=== PATIENT | female | born 2000 | race African-American/Black ===

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

== ENCOUNTER 2019-07-30 21:52 | Emergency (ER) | payer MEDICAID, OTHER ==
[~2019-07-30] VITALS: Ht 165.1 cm; Wt 88.5 kg
[~2019-07-30 21:52] MED LIST changes: +METR-34 PO; -METR500T8 PO
--- NOTE | 2019-07-30 23:01 | PHYS DOC ---
Past Medical History Past Medical History: No Pertinent History Past Surgical History: Other Additional Past Surgical Histo: IUD REMOVAL Alcohol Use: None Drug Use: None Adult General Chief Complaint Chief Complaint: ABDOMINAL PAIN HPI HPI 19-year-old male presents to the emergency department with complaints of left abdominal pain. She describes off and on, she as well describes dizziness, nausea, vomiting or diarrhea, she does complain of dysuria as well as frequency. She is febrile here. Temperature is 100.8. Patient denies any headache, chest pain, shortness of breath. Nothing makes her symptoms worse, nothing makes her symptoms better. Review of Systems Review of Systems Constitutional: Chills, fever Eyes: Denies change in visual acuity, redness, or eye pain [] HENT: Denies nasal congestion or sore throat [] Respiratory: Denies cough or shortness of breath [] Cardiovascular: No additional information not addressed in HPI [] GI: Positive abdominal pain, nausea, vomiting, no bloody stools or diarrhea [] : Positive frequency, dysuria Musculoskeletal: Denies back pain or joint pain [] Integument: Denies rash or skin lesions [] Neurologic: Denies headache, focal weakness or sensory changes [] All other systems were reviewed and found to be within normal limits, except as documented in this note. Allergies Allergies Allergies Coded Allergies Type Severity Reaction Last Updated Verified No Known Drug Allergies 03/01/16 No Physical Exam Physical Exam Constitutional: Well developed, well nourished, mild distress due to pain, non- toxic appearance. [] HENT: Normocephalic, atraumatic, bilateral external ears normal, oropharynx moist, no oral exudates, nose normal. [] Eyes: PERRLA, EOMI, conjunctiva normal, no discharge. [] Neck: Normal range of motion, no tenderness, supple, no stridor. [] Cardiovascular: Tachycardia Lungs & Thorax: Bilateral breath sounds clear to auscultation [] Abdomen: Tender to palpation left lower abdomen, no masses, no pulsatile masses. [] Skin: Warm, dry, no erythema, no rash. [] Back: No tenderness, no CVA tenderness. [] Extremities: No tenderness, no cyanosis, no edema. [] Neurologic: Alert and oriented X 3, no focal deficits noted. [] Psychologic: Affect normal, judgement normal, mood normal. [] Current Patient Data Vital Signs Vital Signs Date Time Temp Pulse Resp B/P (MAP) Pulse Ox O2 Delivery O2 Flow Rate FiO2 07/30/19 21:55 102.7 134 24 121/72 (88) 99 Room Air 102.7 EKG EKG [] Radiology/Procedures Radiology/Procedures [] Course & Med Decision Making Course & Med Decision Making Pertinent Labs and Imaging studies reviewed. (See chart for details) []19-year-old male presents to the emergency department with complaints of left abdominal pain. She describes off and on, she as well describes dizziness, nausea, vomiting or diarrhea, she does complain of dysuria as well as frequency. She is febrile here. Temperature is 100.8. Patient denies any headache, chest pain, shortness of breath. Nothing makes her symptoms worse, nothing makes her symptoms better. Dragon Disclaimer Dragon Disclaimer This electronic medical record was generated, in whole or in part, using a voice recognition dictation system. Departure Departure Referrals: NO PCP (PCP) JEFRY BARBOZA MD Jul 30, 2019 23:01
[2019-07-30 23:03] LABS: BILIRUBIN,URINE NEGATIVE (NEG); CLARITY,URINE CLEAR; COLOR,URINE YELLOW; NITRITE,URINE NEGATIVE (NEG); PROTEIN,URINE NEGATIVE (NEG-TRACE)
[2019-07-30 23:11] LABS: BACTERIA,URINE MODERATE /HPF (0-FEW); SQUAMOUS EPITHELIAL CELL,UR FEW /LPF; WBC,URINE >40 /HPF (0-4)
[2019-07-30 23:11] LABS: BASO # 0.1 x10^3/uL (0.0-0.2); BASO % 0 % (0-3); EOS % 0 % (0-3); HEMOGLOBIN 13.1 g/dL (12.0-15.5); LYMPH # 1.3 x10^3/uL (1.0-4.8); LYMPH % 6 % (24-48); MEAN CORPUSCULAR HEMOGLOBIN 30 pg (25-35); MEAN CORPUSCULAR HGB CONC 34 g/dL (31-37); MEAN CORPUSCULAR VOLUME 90 fL (79-100); MONO # 1.2 x10^3/uL (0.0-1.1); MONO % 6 % (0-9); NEUT # 17.5 x10^3/uL (1.8-7.7); NEUT % 87 % (31-73); PLATELET COUNT 358 x10^3/uL (140-400); RED BLOOD COUNT 4.33 x10^6/uL (3.50-5.40); RED CELL DISTRIBUTION WIDTH 13.3 % (11.5-14.5)
[2019-07-30 23:20] LABS: CALCIUM 9.5 mg/dL (8.5-10.1); CREATININE 0.9 mg/dL (0.6-1.0); GFR 96.6; POTASSIUM 3.7 mmol/L (3.5-5.1)
[2019-07-30 23:26] LABS: ALBUMIN 3.8 g/dL (3.4-5.0); TOTAL BILIRUBIN 0.3 mg/dL (0.2-1.0); TOTAL PROTEIN 7.8 g/dL (6.4-8.2)
[2019-07-30 23:30] LABS: % BANDS 5 % (0-9); % LYMPHS 5 % (24-48); % MONOS 7 % (0-10); % SEGS 83 % (35-66); PLT ESTIMATE ADEQUATE (ADEQUATE)
[2019-07-30] MEDS ORDERED: IV NORMAL SALINE 1000ML BAG 1,000 ML IV ONE (23:30)
[2019-07-30] MEDS ORDERED: ONDANSETRON PF 4 MG/2 ML VIAL. IV ONE (23:30)
[2019-07-30] MEDS ORDERED: ACETAMINOPHEN 500 MG TABLET PO ONE (23:30)
[2019-07-30 23:31] LABS: TOXIC VACUOLATION SLIGHT
[2019-07-30] MEDS ORDERED: CONTRAST GIVEN. MC PRN (23:45)
--- NOTE | 2019-07-30 23:56 | PHYS DOC ---
Past Medical History Past Medical History: No Pertinent History Past Surgical History: Other Additional Past Surgical Histo: IUD REMOVAL Alcohol Use: None Drug Use: None Adult General Chief Complaint Chief Complaint: PAIN ON URINATION HPI HPI 19-year-old male presents to the emergency department with complaints of left abdominal pain. She describes off and on, she as well describes dizziness, nausea, vomiting or diarrhea, she does complain of dysuria as well as frequency. She is febrile here. Temperature is 100.8. Patient denies any headache, chest pain, shortness of breath. Nothing makes her symptoms worse, nothing makes her symptoms better. Review of Systems Review of Systems Constitutional: Chills, fever Eyes: Denies change in visual acuity, redness, or eye pain [] HENT: Denies nasal congestion or sore throat [] Respiratory: Denies cough or shortness of breath [] Cardiovascular: No additional information not addressed in HPI [] GI: Positive abdominal pain, nausea, vomiting, no bloody stools or diarrhea [] : Positive frequency, dysuria Musculoskeletal: Denies back pain or joint pain [] Integument: Denies rash or skin lesions [] Neurologic: Denies headache, focal weakness or sensory changes [] All other systems were reviewed and found to be within normal limits, except as documented in this note. Current Medications Current Medications Current Medications Medications (Trade) Dose Ordered Sig/Vicenta Start Time Stop Time Status Last Admin Dose Admin Acetaminophen (Tylenol) 1,000 mg 1X ONCE 07/30/19 23:30 07/30/19 23:31 DC 07/30/19 23:26 1,000 MG Ceftriaxone Sodium (Rocephin) 1 gm 1X ONCE 07/31/19 00:00 07/31/19 00:01 DC 07/30/19 23:53 1 GM Info (CONTRAST GIVEN -- Rx MONITORING) 1 each PRN DAILY PRN 07/30/19 23:45 08/01/19 23:44 Iohexol (Omnipaque 300 Mg/ml) 75 ml 1X ONCE 07/31/19 00:30 07/31/19 00:31 DC Ketorolac Tromethamine (Toradol 30mg Vial) 30 mg 1X ONCE 07/31/19 00:00 07/31/19 00:01 DC 07/30/19 23:52 30 MG Ondansetron HCl (Zofran) 4 mg 1X ONCE 07/31/19 00:00 07/31/19 00:02 DC 07/30/19 23:57 4 MG Sodium Chloride 1,000 ml @ 1,000 mls/hr 1X ONCE 07/30/19 23:30 07/31/19 00:29 DC 07/30/19 23:26 1,000 MLS/HR Allergies Allergies Allergies Coded Allergies Type Severity Reaction Last Updated Verified No Known Drug Allergies 03/01/16 No Physical Exam Physical Exam Constitutional: Well developed, well nourished, mild distress due to pain, non- toxic appearance. [] HENT: Normocephalic, atraumatic, bilateral external ears normal, oropharynx moist, no oral exudates, nose normal. [] Eyes: PERRLA, EOMI, conjunctiva normal, no discharge. [] Neck: Normal range of motion, no tenderness, supple, no stridor. [] Cardiovascular: Tachycardia Lungs & Thorax: Bilateral breath sounds clear to auscultation [] Abdomen: Tender to palpation left lower abdomen, no masses, no pulsatile masses. [] Skin: Warm, dry, no erythema, no rash. [] Back: No tenderness, no CVA tenderness. [] Extremities: No tenderness, no cyanosis, no edema. [] Neurologic: Alert and oriented X 3, no focal deficits noted. [] Psychologic: Affect normal, judgement normal, mood normal. [] Current Patient Data Vital Signs Vital Signs Date Time Temp Pulse Resp B/P (MAP) Pulse Ox O2 Delivery O2 Flow Rate FiO2 07/30/19 23:17 100.8 100.8 07/30/19 21:55 134 24 121/72 (88) 99 Room Air Lab Values Laboratory Tests Test 07/30/19 22:56 07/30/19 22:58 07/30/19 23:00 07/31/19 00:43 Urine Collection Type Unknown Urine Color Yellow Urine Clarity Clear Urine pH 6.0 Urine Specific [place] 1.025 Urine Protein Negative mg/dL (NEG-TRACE) Urine Glucose (UA) Negative mg/dL (NEG) Urine Ketones (Stick) Negative mg/dL (NEG) Urine Blood Trace (NEG) Urine Nitrite Negative (NEG) Urine Bilirubin Negative (NEG) Urine Urobilinogen Dipstick 1.0 mg/dL (0.2 mg/dL) Urine Leukocyte Esterase Small (NEG) Urine RBC 6-10 /HPF (0-2) Urine WBC >40 /HPF (0-4) Urine Squamous Epithelial Cells Few /LPF Urine Bacteria Moderate /HPF (0-FEW) Urine Mucus Mod /LPF POC Urine HCG, Qualitative Hcg negative (Negative) White Blood Count 20.0 x10^3/uL (4.0-11.0) H Red Blood Count 4.33 x10^6/uL (3.50-5.40) Hemoglobin 13.1 g/dL (12.0-15.5) Hematocrit 39.0 % (36.0-47.0) Mean Corpuscular Volume 90 fL (79-100) Mean Corpuscular Hemoglobin 30 pg (25-35) Mean Corpuscular Hemoglobin Concent 34 g/dL (31-37) Red Cell Distribution Width 13.3 % (11.5-14.5) Platelet Count 358 x10^3/uL (140-400) Neutrophils (%) (Auto) 87 % (31-73) H Lymphocytes (%) (Auto) 6 % (24-48) L Monocytes (%) (Auto) 6 % (0-9) Eosinophils (%) (Auto) 0 % (0-3) Basophils (%) (Auto) 0 % (0-3) Neutrophils # (Auto) 17.5 x10^3/uL (1.8-7.7) H Lymphocytes # (Auto) 1.3 x10^3/uL (1.0-4.8) Monocytes # (Auto) 1.2 x10^3/uL (0.0-1.1) H Eosinophils # (Auto) 0.0 x10^3/uL (0.0-0.7) Basophils # (Auto) 0.1 x10^3/uL (0.0-0.2) Segmented Neutrophils % 83 % (35-66) H Band Neutrophils % 5 % (0-9) Lymphocytes % 5 % (24-48) L Monocytes % 7 % (0-10) Toxic Vacuolation Slight Platelet Estimate Adequate (ADEQUATE) Sodium Level 142 mmol/L (136-145) Potassium Level 3.7 mmol/L (3.5-5.1) Chloride Level 104 mmol/L (98-107) Carbon Dioxide Level 27 mmol/L (21-32) Anion Gap 11 (6-14) Blood Urea Nitrogen 10 mg/dL (7-20) Creatinine 0.9 mg/dL (0.6-1.0) Estimated GFR (Cockcroft-Gault) 96.6 BUN/Creatinine Ratio 11 (6-20) Glucose Level 105 mg/dL (70-99) H Calcium Level 9.5 mg/dL (8.5-10.1) Total Bilirubin 0.3 mg/dL (0.2-1.0) Aspartate Amino Transferase (AST) 14 U/L (15-37) L Alanine Aminotransferase (ALT) 18 U/L (14-59) Alkaline Phosphatase 68 U/L (46-116) Total Protein 7.8 g/dL (6.4-8.2) Albumin 3.8 g/dL (3.4-5.0) Albumin/Globulin Ratio 1.0 (1.0-1.7) Lactic Acid Level 1.2 mmol/L (0.4-2.0) Laboratory Tests 07/30/19 23:00 Laboratory Tests 07/30/19 23:00 EKG EKG [] Radiology/Procedures Radiology/Procedures [facility] [address] [place] [address] IMAGING REPORT Signed PATIENT: DEAN PAUL ACCOUNT: [id number] : 2000 LOCATION: ER AGE: 19 SEX: F EXAM STATUS: REG ER ORD. PHYSICIAN: JEFRY BARBOZA MD REASON: left side abdominal pain, likely pyelo PROCEDURE: CT ABD PELV W/ IV CONTRST ONLY EXAM: CT ABDOMEN/PELVIS WITH CONTRAST. HISTORY: Left abdominal pain. TECHNIQUE: Computed tomography of the abdomen and pelvis was performed after the intravenous administration of iodinated contrast. COMPARISON: None. FINDINGS: Lung windows through the visualized portions of the bases reveal mild atelectasis. Bone windows reveal no suspicious lesions. There is mild wall thickening and segmental mild dilatation of the small bowel in the right lower quadrant. There is no small bowel dilatation proximally. The appendix is not inflamed. There is a small amount of free pelvic fluid. The liver, gallbladder, pancreas, adrenal glands, spleen and kidneys are unremarkable. Prominent right lower quadrant mesenteric lymph nodes are likely reactive in this setting. IMPRESSION: 1. Mild small bowel wall thickening and dilatation in the right lower quadrant may reflect distal ileitis or a partial obstruction in the setting of adhesions. Correlate clinically. *One or more of the following individualized dose reduction techniques were utilized for this examination: 1. Automated exposure control. 2. Adjustment of the mA and/or kV according to patient size. 3. Use of iterative reconstruction technique. Electronically signed by: Elzbieta Cardozo MD (07/31/2019 12:57 AM) [facility] DICTATED and SIGNED BY: JOSSE CARDOZO MD DATE: 07/31/19 0057 [] Course & Med Decision Making Course & Med Decision Making Pertinent Labs and Imaging studies reviewed. (See chart for details) []19-year-old male presents to the emergency department with complaints of left abdominal pain. She describes off and on, she as well describes dizziness, na usea, vomiting or diarrhea, she does complain of dysuria as well as frequency. She is febrile here. Temperature is 100.8. Patient denies any headache, chest pain, shortness of breath. Nothing makes her symptoms worse, nothing makes her symptoms better. Labs reviewed, white blood cell count 20,000, urinalysis reveals evidence of urinary tract infection. UCG is negative. Patient remains tachycardic she is improved to low 1 teens however now has back up to the 120s secondary to recurrent vomiting. CT scan is reviewed. CT mentions concern for possible ileus however clinically not coincided. She improved after Zofran. Heart rate currently 100-110. Discussed admission however patient declines. Lactic acid 1.2. We'll finish IV fluids, plan for by mouth abx therapy upon discharge with strict return precautions. Discussed with patient at bedside. She is understanding Dragon Disclaimer Dragon Disclaimer This electronic medical record was generated, in whole or in part, using a voice recognition dictation system. Departure Departure Impression: Primary Impression: UTI (urinary tract infection) Additional Impression: Nausea and vomiting Disposition: HOME, SELF-CARE Condition: STABLE Referrals: NO PCP (PCP) Patient Instructions: Urinary Tract Infection, [place] Additional Instructions: Recommend follow up with PCP 3 - 5 days Return to the ER with worsening symptoms, intractable pain, fever, altered mental status Tylenol/Motrin as needed for pain Take antibioitics, as directed Zofran as needed for nausea Scripts Cephalexin (KEFLEX) 500 Mg Capsule 2 CAP PO Q12HR for 5 Days, #20 CAP Prov: JEFRY BARBOZA MD 07/31/19 Ondansetron Hcl (ZOFRAN) 4 Mg Tablet 1 TAB PO PRN Q6-8HRS, #12 TAB Prov: JEFRY BARBOZA MD 07/31/19 Problem Qualifiers Primary Impression: UTI (urinary tract infection) Urinary tract infection type: site unspecified Hematuria presence: without hematuria Qualified Codes: N39.0 - Urinary tract infection, site not specified Additional Impression: Nausea and vomiting Vomiting type: unspecified Vomiting Intractability: non-intractable Qualified Codes: R11.2 - Nausea with vomiting, unspecified JEFRY BARBOZA MD Jul 30, 2019 23:56
[2019-07-31] MEDS ORDERED: KETOROLAC 30 MG/ML VIAL. IV ONE
[2019-07-31] MEDS ORDERED: ONDANSETRON PF 4 MG/2 ML VIAL. IVP ONE
[2019-07-31] MEDS ORDERED: cefTRIAXone IV Push 1 GM VIAL. IVP ONE
[2019-07-31] MEDS ORDERED: IOHEXOL 300 MG/ML 100ML VIAL. IV ONE (00:30)
--- NOTE | 2019-07-31 00:59 | RAD ---
EXAM: CT ABDOMEN/PELVIS WITH CONTRAST. HISTORY: Left abdominal pain. TECHNIQUE: Computed tomography of the abdomen and pelvis was performed after the intravenous administration of iodinated contrast. COMPARISON: None. FINDINGS: Lung windows through the visualized portions of the bases reveal mild atelectasis. Bone windows reveal no suspicious lesions. There is mild wall thickening and segmental mild dilatation of the small bowel in the right lower quadrant. There is no small bowel dilatation proximally. The appendix is not inflamed. There is a small amount of free pelvic fluid. The liver, gallbladder, pancreas, adrenal glands, spleen and kidneys are unremarkable. Prominent right lower quadrant mesenteric lymph nodes are likely reactive in this setting. IMPRESSION: 1. Mild small bowel wall thickening and dilatation in the right lower quadrant may reflect distal ileitis or a partial obstruction in the setting of adhesions. Correlate clinically. *One or more of the following individualized dose reduction techniques were utilized for this examination: 1. Automated exposure control. 2. Adjustment of the mA and/or kV according to patient size. 3. Use of iterative reconstruction technique. Electronically signed by: Elzbieta Cardozo MD (07/31/2019 12:57 AM) [facility]
[2019-07-31 01:00] VITALS: BP 101/59
[2019-07-31] MEDS ORDERED: CEPH-264 PO (01:21)
[2019-07-31] MEDS ORDERED: ONDA4TAB7 PO (01:21)
[2019-07-31] MEDS ORDERED: IOHEXOL 300 MG/ML 100ML VIAL. ONE (04:33)
== END 2019-07-31 01:42 | disposition home or self-care (01) ==
LOC: ER 21:52
DX: N39.0 Urinary tract infection, site not specified (principal); R11.2 Nausea with vomiting, unspecified; R42 Dizziness and giddiness
CPT/HCPCS: 36415; 74177; 80053; 81001; 81025; 83605; 85007; 85025; 87086; 96361; 96374; 96375; 96376; 99285; J0696; J1885; J2405; J7030; Q9967

== ENCOUNTER 2020-12-26 05:15 | Emergency (ER) | payer MEDICAID ==
[~2020-12-26] VITALS: Ht 165.1 cm; Wt 93.2 kg
[~2020-12-26 05:15] MED LIST changes: +CEPH-264 PO
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
[2020-12-26 06:16] VITALS: BP 116/67
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
[2020-12-26] MEDS ORDERED: IBUPROFEN 200 MG TABLET. PO ONE (07:45)
[2020-12-26] MEDS ORDERED: HYDROcodone/APAP 7.5/325MG 1 TAB TABLET PO ONE (07:45)
[2020-12-26] MEDS ORDERED: NEOMY/BACITR/POLYMYXIN OINT PACKET. TP ONE (07:45)
== END 2020-12-26 08:36 | disposition home or self-care (01) ==
LOC: ER 05:15
DX: S02.2XXA Fracture of nasal bones, initial encounter for closed fracture (principal); S01.01XA Laceration without foreign body of scalp, initial encounter; S40.012A Contusion of left shoulder, initial encounter; S40.011A Contusion of right shoulder, initial encounter; S60.222A Contusion of left hand, initial encounter; S80.212A Abrasion, left knee, initial encounter; M25.532 Pain in left wrist; M54.2 Cervicalgia; Y08.89XA Assault by other specified means, initial encounter; Y93.89 Activity, other specified; Y92.89 Other specified places as the place of occurrence of the external cause; Y99.8 Other external cause status
CPT/HCPCS: 12002; 70450; 70486; 72125; 73100; 73130; 73562; 81025; 99285-25

== ENCOUNTER 2021-10-09 16:38 | Emergency (ER) | payer MEDICAID | END 2021-10-09 19:01 | disposition left against medical advice (07) | LOC: ER 16:38 | DX: R10.30 Lower abdominal pain, unspecified (principal); Z53.21 Procedure and treatment not carried out due to patient leaving prior to being seen by health care provider ==